=== PATIENT | male | born 1945 | race African-American/Black ===

== ENCOUNTER 2018-09-26 08:31 | Inpatient (IN) | payer OTHER ==
[~2018-09-26] VITALS: Ht 170.2 cm; Wt 83.5 kg
[~2018-09-26 08:31] MED LIST: ASPI-1718 PO; CLON0.1T42 PO; DOXA2TAB1 PO; GLUCOMETER; INSU100S55 SC; INSULIN SYRINGE PO; LANCET; SLIDE SUBQ; TEST STRIPS
--- NOTE | 2018-09-26 08:36 | NUR ---
PATIENT AMBULATED TO BED 8
[2018-09-26 08:38] VITALS: BP 136/66
[2018-09-26] MEDS ORDERED: ASPIRIN 325 MG TAB PO ONE (08:40)
[2018-09-26] MEDS ORDERED: MORPHINE SULFATE 4 MG/ML SYR IVP ONE (08:40)
[2018-09-26] MEDS ORDERED: NITROGLYCERIN 2% 1 GM PKT TP ONE (08:40)
--- NOTE | 2018-09-26 08:45 | NUR ---
PT BIB SELF FOR CP X3 HOURS. PT REPORTS CONSTANT, NON-RADIATING MID-STERNAL SHARP CP AT 9/10. PT TOOK 81MG OF ASPIRIN AT 06:30 THIS MORNING WITH NO RELIEF. S1 AND S2 SOUNDS, NO S3 OR S4, NO EDEMA, CAP REFIL DELAYED, RADIAL PULSES EQUAL 2+, PT NOT DIAPHORETIC AT THIS TIME. PT REPORTS SOB. PT HAS SHALLOW RESPIRATIONS AT 30/MIN, LUNG SOUNDS CLEAR THROUGHOUT. 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 ABD IS DISTENDED, AND FIRM, PT DENIES ABD PAIN. PT DIAGNOSED WITH CONSTIPATION LAST NIGHT AT [facility]. ER MD TO SEE PT. MEDHX:HTN, DM, RENAL FAILURE, PEROTINEAL DYALISIS
[2018-09-26 09:09] LABS: BASOPHILS % (AUTO) 0.6 % (0.0-2.0); EOSINOPHILS # (AUTO) 0.1 K/uL (0-0.4); EOSINOPHILS % (AUTO) 0.6 % (0.0-4.0); HEMATOCRIT 27.6 % (36-52); HEMOGLOBIN 9.2 g/dL (12.0-18.0); LYMPHOCYTES # (AUTO) 0.6 K/uL (2.0-11.5); LYMPHOCYTES % (AUTO) 7.2 % (20.5-51.1); MEAN CORPUSCULAR HEMOGLOBIN 31 pg (27-31); MEAN CORPUSCULAR HGB CONC 33 g/dL (33-37); MEAN CORPUSCULAR VOLUME 92.3 fL (80-94); MONOCYTES # (AUTO) 1.2 K/uL (0.8-1.0); MONOCYTES % (AUTO) 15.2 % (1.7-9.3); NEUTROPHILS % (AUTO) 76.4 % (42.2-75.2); PLATELET COUNT (AUTO) 293 K/uL (140-450); RED BLOOD CELL COUNT(AUTO) 2.99 MIL/uL (4.20-6.10); RED CELL DISTRIBUTION WIDTH 16.6 % (11.6-13.7); WHITE BLOOD COUNT (AUTO) 7.8 K/uL (4.8-10.8)
[2018-09-26] MEDS ORDERED: OMEG10005 PO (09:16)
[2018-09-26] MEDS ORDERED: FURO-570 PO (09:16)
[2018-09-26] MEDS ORDERED: PRO5 PO (09:16)
[2018-09-26] MEDS ORDERED: LEVEMIR SUBQ (09:16)
[2018-09-26] MEDS ORDERED: FOS500 PO (09:16)
[2018-09-26] MEDS ORDERED: ATOR20TA PO (09:16)
[2018-09-26] MEDS ORDERED: FAMO-90 PO (09:16)
[2018-09-26] MEDS ORDERED: DOCU-299 PO (09:16)
[2018-09-26] MEDS ORDERED: CALC-17 PO (09:16)
[2018-09-26] MEDS ORDERED: CLAR500T PO (09:16)
[2018-09-26] MEDS ORDERED: LORA10OD44 PO (09:16)
[2018-09-26] MEDS ORDERED: XALOS OP (09:16)
[2018-09-26] MEDS ORDERED: MELA5TAB6 PO (09:16)
[2018-09-26] MEDS ORDERED: SEVE800T6 PO (09:16)
[2018-09-26] MEDS ORDERED: SEN30 PO (09:16)
[2018-09-26] MEDS ORDERED: BEN50 PO (09:16)
[2018-09-26] MEDS ORDERED: MULT15LI1 PO (09:16)
[2018-09-26] MEDS ORDERED: OMEP20TC10 PO (09:16)
[2018-09-26] MEDS ORDERED: [UNRECOGNIZED DRUG - CODE] PO (09:16)
[2018-09-26] MEDS ORDERED: MULT1SGL58 PO (09:16)
[2018-09-26] MEDS ORDERED: LOSARTAN PO (09:16)
[2018-09-26] MEDS ORDERED: CINA60TA1 PO (09:16)
[2018-09-26] MEDS ORDERED: AMOX500C25 PO (09:16)
--- NOTE | 2018-09-26 09:36 | NUR ---
BEAN DUMPER AT BEDSIDE AT THIS TIME
[2018-09-26 10:07] LABS: ALBUMIN 2.9 g/dL (3.4-5.0); ANION GAP 23.6 (8-16); ASPARTATE AMINOTRANSFERASE 20 U/L (15-37); CARBON DIOXIDE 19.5 mmol/L (21-32); CHLORIDE 92 mmol/L (98-107); GLUCOSE 243 mg/dL (74-106); POTASSIUM 3.1 mmol/L (3.5-5.1); SODIUM SERUM 132 mmol/L (136-145); TOTAL BILIRUBIN 0.3 mg/dL (0.0-1.0)
[2018-09-26 10:08] LABS: CHOL/HDL RATIO 3.8 (1-4.5)
[2018-09-26 10:10] LABS: CREATININE 16.5 mg/dL (0.7-1.3); UREA NITROGEN, BLOOD 79 mg/dL (7-18)
--- NOTE | 2018-09-26 10:14 | NUR ---
FAMILY AT BEDSIDE
--- NOTE | 2018-09-26 10:42 | NUR ---
SPOKE WITH DR SCHULER, SHE STATED THAT PT WILL RECIEVE PERITONEAL DIALYSIS.
[2018-09-26 11:00] VITALS: BP 129/63
--- NOTE | 2018-09-26 11:00 | NUR ---
RECEIVED BEDSIDE REPORT FROM ED RN. PT AMBULATED FROM [facility] TO BED. AOX4. C/O CHEST TOLERABLE 4/10 CHEST PAIN. RECEIVED MORPHINE AND NITRO PATCH ON LT UA IN ED. DENIES RADIATION OF PAIN. DENIES DIZZINESS/LIGHTHEADEDNESS/DIAPHORESIS/ANXIETY. RESPIRATIONS EVEN AND UNLABORED. TACHY ON TELE MONITOR. VITALS STABLE. PERITONEAL DIALYSIS CATH NOTED. SKIN INTACT. PATIENT STATES HE IS NO LONGER PRODUCING URINE. IV SITE PATENT AND ASYMPTOMATIC, ON SL PER MD ORDERS. UPDATED BOARD AND INTRODUCED SELF. EXPLAINED PLAN OF CARE TO PATIENT AND FRIEND AT BEDSIDE. PT ALSO C/O CONSTIPATION. WILL INFORM MD. ALL SAFETY PRECAUTIONS IN PLACE, WILL CONTINUE TO MONITOR.
--- NOTE | 2018-09-26 11:00 | NUR ---
Patient will be admitted to care of [facility]. Admited to TELE VIA GURNEY WITH VSS. Will go to room 114. Belongings list completed. Report to ALEXIS DE JESUS.
[2018-09-26] MEDS ORDERED: NITROGLYCERIN 0.4 MG TAB SL PRN (11:30)
[2018-09-26] MEDS ORDERED: MORPHINE SULFATE 2 MG/ML SYR IV PRN (11:30)
[2018-09-26] MEDS ORDERED: PROMETHAZINE 25 MG/ML VIAL IVP PRN (11:30)
[2018-09-26] MEDS ORDERED: ZOLPIDEM 5 MG TAB PO PRN (11:30)
[2018-09-26] MEDS ORDERED: MORPHINE SULFATE 2 MG/ML SYR IVP PRN (11:30)
[2018-09-26] MEDS ORDERED: LORazepam 1 MG TAB PO PRN (11:30)
[2018-09-26] MEDS ORDERED: ACETAMINOPHEN 325 MG TAB PO PRN (11:30)
[2018-09-26] MEDS ORDERED: cloNIDine 0.1 MG TAB PO PRN (11:45)
[2018-09-26] MEDS ORDERED: DEXTROSE 50% 50 ML SYR IVP PRN (11:45)
[2018-09-26] MEDS ORDERED: POTASSIUM CHLORIDE 10 MEQ TABER PO SCH (12:00)
[2018-09-26] MEDS ORDERED: SENNA 8.6 MG TAB PO PRN (12:25)
[2018-09-26 12:55] LABS: AMYLASE 79 U/L (25-115); LIPASE 65 U/L (73-393)
[2018-09-26 12:57] LABS: PROTHROMBIN TIME 13.9 secs (10.8-13.4)
--- NOTE | 2018-09-26 12:57 | NUR ---
RECEIVED ORDERS FOR PERITONEAL DIALYSIS. CALLED [facility] AND LEFT MESSAGE.
[2018-09-26] MEDS ORDERED: BISACODYL 5 MG TABEC PO SCH (13:00)
[2018-09-26] MEDS ORDERED: MINERAL OIL 135 ML ENEM RC SCH (13:00)
[2018-09-26] MEDS: DOCUSATE SODIUM 100 MG GELCAP PO SCH ×2 (13:05→16:28)
[2018-09-26] MEDS: SODIUM CHLORIDE FLUSH 10 ML SYR IVF SCH ×2 (13:05→20:49)
--- NOTE | 2018-09-26 13:10 | NUR ---
PATIENT REFUSED MINERAL OIL ENEMA AT THIS TIME. ADMINISTERED COLACE AND BISACODYL. PT IS AWARE OF MIRALAX ORDER FOR LATER TODAY. WISHES TO TRY MIRALAX- IF NO BOWEL MOVEMENT, WILL CONSIDER ASKING FOR ENEMA TOMORROW PER PATIENT.
--- NOTE | 2018-09-26 13:47 | NUR ---
PER [facility], MACHINERY MECHANIC WILL BE AT BEDSIDE FOR PERITONEAL DIALYSIS AT ESTIMATED TIME 2099.
--- NOTE | 2018-09-26 13:57 | NUR ---
PATIENT STATES CHEST PAIN IS DECREASING. 09/12 TOLERABLE. WILL CONTINUE TO MONITOR.
[2018-09-26] MEDS ORDERED: MAGNESIUM CITRATE 300 ML BTL PO SCH (15:15)
--- NOTE | 2018-09-26 15:20 | NUR ---
NOTIFIED CROSSTIE INSPECTOR THAT PATIENT IS ACCEPTED BY [facility]. ACCEPTING PHYSICIAN DR. HOPSON. CROSSTIE INSPECTOR TO CALL TO [facility] FOR TRANSPORTATION.
[2018-09-26 16:00] VITALS: BP 111/63
--- NOTE | 2018-09-26 16:01 | NUR ---
PATIENT ASSESSED. BREATH SOUNDS CLEAR. ON ROOM AIR, PATIENT PULSE OX SAT 96%. PLACED ON 3L NASAL CANNULA PER MD ORDER PER CHEST PAIN PROTOCOL. ON 3L NC, PULSE OX SAT 97%. NO RESPIRATORY DISTRESS NOTED AT THIS TIME. WILL CONTINUE TO MONITOR.
--- NOTE | 2018-09-26 16:31 | NUR ---
PATIENT RESTING IN BED, AROUSABLE BY VOICE. SCHEDULED MEDICATIONS ADMINISTERED. DENIES CHEST PAIN AT THIS TIME.
[2018-09-26] MEDS: BLOOD GLUCOSE MONITORING 1 DEV DEV FS SCH ×2 (17:20→20:43)
[2018-09-26] MEDS: INSULIN LISPRO SLIDING SCALE 100 UNITS/ML VIAL SUBQ PRN ×2 (17:23→20:44)
--- NOTE | 2018-09-26 19:18 | NUR ---
ENDORSED POC TO HEEL SEAT FITTER MACHINE JULIANA PEREZ PT IN STABLE CONDITION. Addendum: 09/26/18 at 1919 by Suha Hawthorne Meng, RN DISREGARD, WRONG PATIENT
--- NOTE | 2018-09-26 19:21 | NUR ---
ENDORSED POC TO SEO ASSOCIATE RN. PT IN STABLE CONDITION.
--- NOTE | 2018-09-26 19:22 | NUR ---
RECEIVED REPORT FROM DAY SHIFT RN ALEXIS FOR CONTINUITY OF CARE. PT IS A/OX4, ON ROOM AIR. PT ABLE TO MAKE NEEDS KNOWN, AND ABLE TO FOLLOW COMMANDS. PT IS FALL RISK AND AMBULATES WITH ASSISTANCE. PT HAS CATHETER FOR PERITONEAL DIALYSIS IN PLACE, OTHERWISE SKIN IS INTACT. PT HAS AV SHUNT TO LEFT ARM AND A 20G IV TO RIGHT AC, ASYMPTOMATIC AND INTACT. DISCUSSED PLAN OF CARE WITH PT, PT VERBALIZED UNDERSTANDING. VITAL SIGNS WITHIN NORMAL LIMITS. PT STABLE, DENIES PAIN, NO SIGNS OF DISTRESS NOTED AT THIS TIME. PT POSITIONED FOR COMFORT. BED IN LOWEST POSITION, BED ALARM ON. WILL CONTINUE TO MONITOR.
[2018-09-26 20:00] VITALS: BP 126/56
[2018-09-26] MEDS: diphenhydrAMINE 50 MG CAP PO SCH (20:41)
[2018-09-26] MEDS: FAMOTIDINE 20 MG TAB PO SCH (20:49)
--- NOTE | 2018-09-26 20:49 | NUR ---
ADMINISTERED SCHEDULED MEDICATIONS AND 10 UNITS OF HUMALOG COVERAGE FOR BLOOD SUGAR OF 364. PT TOLERATED WELL. CALLED BRICK [facility]ON FOR DOXAZOSIN BECAUSE IT IS NOT AVAILABLE IS [facility] OR PT'S CASSETTE. WILL GIVE MED ONCE AVAILABLE.
[2018-09-26] MEDS: DOXAZOSIN 2 MG TAB PO SCH (21:00)
--- NOTE | 2018-09-26 21:02 | NUR ---
PT C/O CHEST PAIN, ADMINISTERED MORPHINE ORDERED, PT TOLERATED WELL. DOXAZOSIN NOT AVAILABLE PER CLOTH WASHER OPERATOR. SPOKE TO PT ABOUT IT, PT VERBALIZED UNDERSTANDING.
--- NOTE | 2018-09-26 21:40 | NUR ---
DIALYSIS NURSE HERE.
--- NOTE | 2018-09-26 23:15 | NUR ---
PT REFUSES TO USE O2, STATES HE FEELS FINE WITHOUT IT. PT SATURATING BETWEEN 95% AND 97%. WILL CONTINUE TO MONITOR.
[2018-09-27] VITALS: BP 148/63
--- NOTE | 2018-09-27 | NUR ---
VITAL SIGNS WITHIN NORMAL LIMITS. PT STABLE, DENIES PAIN, NO SIGNS OF DISTRESS NOTED AT THIS TIME. PT POSITIONED FOR COMFORT. BED IN LOWEST POSITION, BED ALARM ON. WILL CONTINUE TO MONITOR.
--- NOTE | 2018-09-27 02:21 | NUR ---
PT SATURATING AT 95% AND STILL REFUSING TO USE O2. WILL CONTINUE TO MONITOR.
[2018-09-27 04:00] VITALS: BP 132/65
[2018-09-27] MEDS: SODIUM CHLORIDE FLUSH 10 ML SYR IVF SCH ×3 (04:51→21:24)
--- NOTE | 2018-09-27 06:02 | NUR ---
PAGED DR GARNER TO INFORM HIM OF PT'S BLOOD SUGAR OF 404.
[2018-09-27] MEDS ORDERED: INSULIN REGULAR, HUMAN 100 UNIT/ML VIAL IVP SCH (06:30)
--- NOTE | 2018-09-27 06:32 | NUR ---
DR GARNER SAID TO GIVE PT 5 UNITS OF REGULAR INSULIN TO PT VIA IVP.
[2018-09-27] MEDS: BLOOD GLUCOSE MONITORING 1 DEV DEV FS SCH ×4 (07:24→21:00)
[2018-09-27] MEDS: INSULIN LISPRO SLIDING SCALE 100 UNITS/ML VIAL SUBQ PRN ×4 (07:25→21:07)
--- NOTE | 2018-09-27 07:27 | NUR ---
ENDORSED PT TO DAY SHIFT NEAL JONAS FOR CONTINUITY OF CARE. PT IN STABLE CONDITION.
--- NOTE | 2018-09-27 07:28 | NUR ---
RECEIVED REPORT FROM PSYCHIATRIC ORDERLY NURSE. PATIENT LYING DOWN IN BED COMFORTABLY. CURRENTLY RECEIVING PERITONEAL DIALYSIS. DIALYSIS NURSE TO COME AROUND 0800 AM TO COMPLETE PERITONEAL DIALYSIS. DENIES ANY PAIN AT THIS TIME. AAOX4, CALM, COOPERATIVE, SKIN COLOR APPROPRIATE TO ETHNICITY, WARM TO TOUCH. SKIN INTACT. IV SITE INTACT, PATENT, ON SALINE LOCK. ABDOMEN SOFT. REVIEWED PLAN OF CARE WITH PATIENT. PATIENT VERBALIZED UNDERSTANDING. SAFETY MEASURES IN PLACE, CALL LIGHT WITHIN REACH. WILL CONTINUE TO MONITOR.
[2018-09-27 07:47] LABS: HEMATOCRIT 27.3 % (36-52); MEAN CORPUSCULAR HEMOGLOBIN 30 pg (27-31); MEAN CORPUSCULAR HGB CONC 33 g/dL (33-37); MEAN CORPUSCULAR VOLUME 92.2 fL (80-94); PLATELET COUNT (AUTO) 286 K/uL (140-450); RED BLOOD CELL COUNT(AUTO) 2.96 MIL/uL (4.20-6.10); RED CELL DISTRIBUTION WIDTH 16.7 % (11.6-13.7); WHITE BLOOD COUNT (AUTO) 5.1 K/uL (4.8-10.8)
[2018-09-27 08:00] VITALS: BP 150/84
--- NOTE | 2018-09-27 08:10 | NUR ---
AWAKE AND ALERT VERBALLY RESPONSIVE C/O POSSIBLE NASAL DRYNES ADDED HUMIDIFIER
[2018-09-27 08:16] LABS: EOSINOPHILS % (MANUAL) 2 % (0-4); LYMPHOCYTES % (MANUAL) 14 % (20-46); MONOCYTES % (MANUAL) 17 % (5-12)
--- NOTE | 2018-09-27 08:28 | NUR ---
PATIENT HAS BEEN SCREENED AND CATEGORIZED MODERATE NUTRITION RISK. PATIENT WILL BE SEEN WITHIN 3-5 DAYS OF ADMISSION. 09/28/18EMILY [address]ALL [address]
[2018-09-27] MEDS: FUROSEMIDE 40 MG TAB PO SCH (09:00)
[2018-09-27] MEDS: ASPIRIN 81 MG TAB.CHEW PO SCH (09:29)
[2018-09-27] MEDS: CALCIUM CARB/VIT-D 500 MG/200 IU 1 TAB PO SCH (09:29)
[2018-09-27] MEDS: DOCUSATE SODIUM 100 MG GELCAP PO SCH ×3 (09:30→18:30)
[2018-09-27] MEDS ORDERED: MINERAL OIL 135 ML ENEM RC SCH (09:30)
[2018-09-27] MEDS: ATORVASTATIN 20 MG TAB PO SCH (09:30)
[2018-09-27] MEDS: POLYETHYLENE GLYCOL 17 GM/PKT PO SCH (09:31)
[2018-09-27] MEDS: CINACALCET 30 MG TAB PO SCH (09:31)
[2018-09-27] MEDS: INSULIN LANTUS 100 UNITS/ML 10 ML VIAL SUBQ SCH (09:39)
[2018-09-27 09:40] LABS: CHLORIDE 89 mmol/L (98-107); POTASSIUM 4.2 mmol/L (3.5-5.1); SODIUM SERUM 129 mmol/L (136-145)
[2018-09-27 09:41] LABS: ANION GAP 25.3 (8-16); CARBON DIOXIDE 18.9 mmol/L (21-32)
[2018-09-27 09:42] LABS: GLUCOSE 424 mg/dL (74-106)
[2018-09-27 09:43] LABS: UREA NITROGEN, BLOOD 94 mg/dL (7-18)
--- NOTE | 2018-09-27 09:50 | NUR ---
PATIENT SITTING IN BED. NO DISTRESS NOTED. DENIES ANY PAIN. SCHEDULED MEDICATIONS DUE GIVEN. WILL CONTINUE TO MONITOR.
[2018-09-27 11:15] LABS: CHOL/HDL RATIO 3.1 (1-4.5)
[2018-09-27 11:27] LABS: MAGNESIUM 2.5 mg/dL (1.8-2.4)
[2018-09-27 12:00] VITALS: BP 117/66
[2018-09-27] MEDS ORDERED: INSULIN LANTUS 100 UNITS/ML 10 ML VIAL SUBQ SCH (13:00)
--- NOTE | 2018-09-27 13:06 | NUR ---
GLUCOSE 422. PAGED DR. MERINO, PER DR. MERINO, ADMINISTER 10 UNITS LANTUS X 1 DOSE NOW, AND 12 UNITS HUMALOG. WILL ADMINISTER PER MD ORDERS.
--- NOTE | 2018-09-27 13:36 | NUR ---
PATIENT SITTING DOWN ON BEDSIDE CHAIR. FAMILY MEMBER AT BEDSIDE. NO DISTRESS NOTED. DENIES ANY PAIN. SCHEDULED MEDICATIONS DUE GIVEN. WILL CONTINUE TO MONITOR.
--- NOTE | 2018-09-27 15:54 | NUR ---
RAIDOLOGIST FOR MS VQ SCAN ON UNIT TO TAKE PATIENT FOR SCAN. WILL CONTINUE TO MONITOR.
[2018-09-27 16:00] VITALS: BP 118/68
--- NOTE | 2018-09-27 16:00 | NUR ---
FERRIC GLUCONATE VIA IV NOT GIVEN AT THIS TIME D/T VQ SCAN PULMONARY TECH ON UNIT TO TAKE PATIENT FOR SCAN. WILL ADMINISTER AFTER VQ SCAN.
--- NOTE | 2018-09-27 17:10 | NUR ---
KUB RESULTS RETURNED, DR. DODSON PAGED. DR SCHULER RETURNED CALL. NOTIFIED OF RESULTS. NO FURTHER ORDERS AT THIS TIME.
--- NOTE | 2018-09-27 17:45 | NUR ---
VQ SCAN COMPLETED. HEMODIALYSIS NURSE AT BEDSIDE TO START HD. FERRIC GLUCONATE IV NOT GIVEN AT THIS TIME AND WILL ENDORSE TO ENGINEER AUTOMATED EQUIPMENT RN TO ADMINISTER AFTER HD COMPLETES.
--- NOTE | 2018-09-27 18:00 | NUR ---
PATIENT BACK FROM NUCLEAR MEDICINE. HEMODIALYSIS STARTED AT THIS TIME. WILL CONTINUE TO MONITOR.
--- NOTE | 2018-09-27 19:15 | NUR ---
RECEIVED REPORT FROM DAY SHIFT NURSE. PT LYING IN BED, AAOX4. PT IS RECEIVING HEMODIALYSIS AT THIS TIME. PT HAS RIGHT AV FISTULA. PT'S AND DIALYSIS NURSE AT BEDSIDE. ON O2 AT 3L/MIN VIA NC. NO C/O PAIN OR SOB. SAFETY PRECAUTION IN PLACE. CALL LIGHT WITHIN REACH.
--- NOTE | 2018-09-27 19:35 | NUR ---
GAVE REPORT TO OPS ANALYST NURSE FOR CONTINUITY OF CARE. PATIENT IN STABLE CONDITION.
[2018-09-27 20:00] VITALS: BP 132/62
--- NOTE | 2018-09-27 20:42 | NUR ---
CALLED FOR RESULT OF NEW EKG.HE ASKED ME TO ORSER SED RATE FOR AM AND FAX EKG TO HIM.IT DONE.
--- NOTE | 2018-09-27 21:00 | NUR ---
DIALYSIS DONE. OUTPUT 2L. VS WITHIN NORMAL LIMITS. NO C/O PAIN OR SOB.
[2018-09-27] MEDS: SODIUM FERRIC GLUCONATE 125 MG in NACL 0.9% 100 ML IV SCH (21:23)
[2018-09-27] MEDS: diphenhydrAMINE 50 MG CAP PO SCH (21:23)
[2018-09-27] MEDS: DOXAZOSIN 2 MG TAB PO SCH (21:24)
--- NOTE | 2018-09-27 21:25 | NUR ---
PT EATING AT THIS TIME. DUE MEDS GIVEN INCLUDING FERRLECIT 125 MG IVPB. FERRLECIT WAS NOT GIVEN EARLIER BEC PT WAS HAVING DIALYSIS. CHARGE NURSE AWARE.
--- NOTE | 2018-09-27 22:30 | NUR ---
PT GOT UP FROM BED, REMOVED HIS IV AND TRIED TO GO TO HALLWAY. ASSISTED PT'S BACK TO BED. SAFETY PRECAUTION IN PLACE. BED ALARM ON.
--- NOTE | 2018-09-27 22:45 | NUR ---
INSERTED IV LINE TO LEFT HAND #22G. GOOD FLUSH AND BLOOD RETURN. PT TOLERATED PROCEDURE WELL.
--- NOTE | 2018-09-27 23:35 | NUR ---
PT TRIED TO GET UP FROM BED X5. ASSISTED PT BACK TO BED. PER PT, HE WANTS TO SLEEP. EXPLAINED TO PT THAT HE GOT HIS BENADRYL THAT'S WHY FEELS DROWSY. PT VERBALIZED UNDERSTANDING. SAFETY MEASURES IN PLACE.
[2018-09-28] VITALS: BP 140/61
--- NOTE | 2018-09-28 01:30 | NUR ---
PT SLEEPING. RESP EVEN AND UNLABORED. NO S/S OF PAIN OR DISCOMFORT. SAFETY PRECAUTION IN PLACE.
[2018-09-28 04:00] VITALS: BP 137/64
--- NOTE | 2018-09-28 04:00 | NUR ---
PT LYING IN BED, AWAKE. CHECKED VS, WNL. NO C/O PAIN OR SOB. NEEDS MET AT THIS TIME. SAFETY PRECAUTION IN PLACE.
[2018-09-28] MEDS: SODIUM CHLORIDE FLUSH 10 ML SYR IVF SCH ×3 (05:04→21:04)
[2018-09-28] MEDS: INSULIN LISPRO SLIDING SCALE 100 UNITS/ML VIAL SUBQ PRN ×3 (06:11→21:06)
[2018-09-28] MEDS: BLOOD GLUCOSE MONITORING 1 DEV DEV FS SCH ×4 (06:16→21:04)
--- NOTE | 2018-09-28 06:30 | NUR ---
BLOOD SUGAR CHECKED 193. 2 UNITS OF HUMALOG GIVEN SUBQ.
[2018-09-28 07:16] LABS: HEMATOCRIT 27.5 % (36-52); MEAN CORPUSCULAR HEMOGLOBIN 30 pg (27-31); MEAN CORPUSCULAR HGB CONC 33 g/dL (33-37); MEAN CORPUSCULAR VOLUME 91.7 fL (80-94); PLATELET COUNT (AUTO) 279 K/uL (140-450); RED CELL DISTRIBUTION WIDTH 16.7 % (11.6-13.7); WHITE BLOOD COUNT (AUTO) 2.6 K/uL (4.8-10.8)
[2018-09-28 07:17] LABS: ANION GAP 14.8 (8-16); CARBON DIOXIDE 26.7 mmol/L (21-32); CHLORIDE 95 mmol/L (98-107); GLUCOSE 187 mg/dL (74-106); POTASSIUM 3.5 mmol/L (3.5-5.1); SODIUM SERUM 133 mmol/L (136-145); UREA NITROGEN, BLOOD 52 mg/dL (7-18)
[2018-09-28 07:20] LABS: MAGNESIUM 2.1 mg/dL (1.8-2.4); PHOSPHORUS 2.9 mg/dL (2.5-4.9)
--- NOTE | 2018-09-28 07:20 | NUR ---
ENDORSED PT TO DAY SHIFT NURSE. PT IN STABLE CONDITION.
--- NOTE | 2018-09-28 07:21 | NUR ---
RECEIVED REPORT FROM AUTOMOTIVE PARTS COUNTERPERSON NURSE FOR CONTINUITY OF CARE. PT IN STABLE CONDITION. RESPIRATIONS EVEN AND UNLABORED. IV INTACT AND PATENT. SAFETY MEASURES IN PLACE. CALL LIGHT AT BEDSIDE. BED IN LOW POSITION. BED ALARM ON. WILL CONTINUE TO MONITOR.
[2018-09-28 07:39] LABS: CREATININE 11.1 mg/dL (0.7-1.3)
[2018-09-28 08:00] VITALS: BP 132/57
--- NOTE | 2018-09-28 08:10 | NUR ---
ASSISTED PT TO RESTROOM AT THIS TIME. PT TOLERATED WELL. CALL LIGHT AT BEDSIDE. BED IN LOW POSITION. BED ALARM ON. WILL CONTINUE TO MONITOR.
[2018-09-28 08:39] LABS: EOSINOPHILS % (MANUAL) 8 % (0-4); LYMPHOCYTES % (MANUAL) 46 % (20-46); MONOCYTES % (MANUAL) 20 % (5-12)
[2018-09-28] MEDS ORDERED: MAGNESIUM CITRATE 300 ML BTL PO SCH (09:00)
[2018-09-28] MEDS: FUROSEMIDE 40 MG TAB PO SCH ×2 (09:00→10:19)
[2018-09-28] MEDS: INSULIN LANTUS 100 UNITS/ML 10 ML VIAL SUBQ SCH (10:12)
--- NOTE | 2018-09-28 10:14 | NUR ---
PT LYING IN BED WATCHING TV IN STABLE CONDITION. CALL LIGHT AT BEDSIDE. BED IN LOW POSITION. BED ALARM ON. WILL CONTINUE TO MONITOR.
[2018-09-28] MEDS: ASPIRIN 81 MG TAB.CHEW PO SCH (10:17)
[2018-09-28] MEDS: CALCIUM CARB/VIT-D 500 MG/200 IU 1 TAB PO SCH (10:17)
[2018-09-28] MEDS: DOCUSATE SODIUM 100 MG GELCAP PO SCH ×3 (10:17→19:07)
[2018-09-28] MEDS: CINACALCET 30 MG TAB PO SCH (10:18)
[2018-09-28] MEDS: ATORVASTATIN 20 MG TAB PO SCH (10:19)
[2018-09-28] MEDS: POLYETHYLENE GLYCOL 17 GM/PKT PO SCH (10:19)
[2018-09-28 12:00] VITALS: BP 130/60
--- NOTE | 2018-09-28 12:30 | NUR ---
PT LYING IN BED SLEEPING AT THIS TIME. WILL CONTINUE TO MONITOR. BED IN LOW POSITION. BED ALARM ON. WILL CONTINUE TO MONITOR.
--- NOTE | 2018-09-28 12:56 | NUR ---
CM NOTE RECEIVED ORDER FOR OUTPATIENT HEMODIALYSIS AT [facility]. FAXED ORDER TO IE. [facility] CM KAREN AWARE. FAXED ORDER AND CLINICAL PACKET INCLUDING CHEST X-RAY AND DIALYSIS FLOWSHEET TO [facility]. PER LARA [facility] COORDINATOR PH# [phone], THEY NEED THE HEPATITIS PANEL FOR THIS PATIENT. CHARGE NURSE MARIN COLÓN.
[2018-09-28] MEDS: LACTULOSE 20 GM/30 ML UDC PO SCH ×3 (12:57→21:10)
--- NOTE | 2018-09-28 13:30 | NUR ---
CM NOTE I SPOKE WITH MIKE OF [facility] PH# [phone] TO SET UP PATIENT'S OUTPATIENT FOLLOW UP APPOINTMENT. PER MIKE, THE EARLIEST AVAILABLE SCHEDULE IS ON OCTOBER 04, 2018, 10:45 AM AT THE CLINIC AT [address] [place] [address]. I GAVE THE PATIENT HIS OUTPATIENT FOLLOW UP SCHEDULE.
--- NOTE | 2018-09-28 14:19 | NUR ---
ELECTRICAL SYSTEMS DESIGNER AT BEDSIDE. PT IN STABLE CONDITION. CALL LIGHT AT BEDSIDE. BED IN LOW POSITION. BED ALARM ON. WILL CONTINUE TO MONITOR.
[2018-09-28] MEDS ORDERED: INDOMETHACIN 25 MG CAP PO SCH (15:00)
[2018-09-28 16:00] VITALS: BP 114/54
[2018-09-28] MEDS: SODIUM FERRIC GLUCONATE 125 MG in NACL 0.9% 100 ML IV SCH (16:53)
--- NOTE | 2018-09-28 18:00 | NUR ---
PT HAD A BOWEL MOVEMENT MODERATE IN SIZE. PT TOLERATED WELL. WILL CONTINUE TO MONITOR.
--- NOTE | 2018-09-28 19:34 | NUR ---
GAVE REPORT TO OCCUPATIONAL NURSE NURSE AT BEDSIDE FOR CONTINUITY OF CARE. PT IN STABLE CONDITION.
--- NOTE | 2018-09-28 19:35 | NUR ---
RECEIVED PT FROM SISSY DE JESUS PT IS AAOX4 EATING HIS DINNER ON TELEMETRY ST, HL ON RT HAND PATENT, DENIES ANY PAIN AT THIS TIME INITIAL ASSESSMENT DONE
[2018-09-28 20:00] VITALS: BP 98/44
[2018-09-28] MEDS: DOXAZOSIN 2 MG TAB PO SCH (21:00)
[2018-09-28] MEDS: INDOMETHACIN 25 MG CAP PO SCH (21:09)
[2018-09-28] MEDS: diphenhydrAMINE 50 MG CAP PO SCH (21:09)
[2018-09-28] MEDS: FAMOTIDINE 20 MG TAB PO SCH (21:16)
--- NOTE | 2018-09-28 21:30 | NUR ---
BLOOD SUGAR TEST 226 WAS COVERAGE WITH 4 UNITS HUMALOG SUBQ FOLLOWING PROTOCOL
--- NOTE | 2018-09-28 22:08 | NUR ---
PT SLEEPING WELL REPOSITIONED Q2H NOT DISTRESS NOTED
[2018-09-29] VITALS: BP 123/60
--- NOTE | 2018-09-29 | NUR ---
PT SLEEPING WELL DENIES ANY PAIN OR DISCOMFORT ON TELMETRY SR REPOSITIONED Q2H
--- NOTE | 2018-09-29 03:00 | NUR ---
SPONGE BATH GIVEN LINEN CHANGED ON TELE SR REPOSITIONED Q2H COOPERATIVE NOT DISTRESS NOTED
[2018-09-29 04:00] VITALS: BP 106/56
[2018-09-29] MEDS: SODIUM CHLORIDE FLUSH 10 ML SYR IVF SCH ×2 (05:49→13:36)
[2018-09-29] MEDS: BLOOD GLUCOSE MONITORING 1 DEV DEV FS SCH ×3 (05:58→16:50)
[2018-09-29] MEDS: INSULIN LISPRO SLIDING SCALE 100 UNITS/ML VIAL SUBQ PRN ×2 (05:59→13:39)
--- NOTE | 2018-09-29 06:35 | NUR ---
BLOOD SUGAR TEST 199 COVERAGE WITH 2 UNITS SUBQ ON RT ARM PT WILL BE ENDORSED TO DAY SHIFT NURSE FOR CONTINUITY OF CARE, PT REMAIN STABLE
[2018-09-29 07:16] LABS: BASOPHILS % (AUTO) 0.5 % (0.0-2.0); EOSINOPHILS # (AUTO) 0.1 K/uL (0-0.4); EOSINOPHILS % (AUTO) 3.4 % (0.0-4.0); HEMATOCRIT 27.2 % (36-52); HEMOGLOBIN 8.8 g/dL (12.0-18.0); LYMPHOCYTES # (AUTO) 0.6 K/uL (2.0-11.5); LYMPHOCYTES % (AUTO) 21.1 % (20.5-51.1); MEAN CORPUSCULAR HEMOGLOBIN 30 pg (27-31); MEAN CORPUSCULAR HGB CONC 32 g/dL (33-37); MEAN CORPUSCULAR VOLUME 94.1 fL (80-94); MONOCYTES # (AUTO) 1.2 K/uL (0.8-1.0); MONOCYTES % (AUTO) 39.4 % (1.7-9.3); NEUTROPHILS # (AUTO) 1.1 K/uL (1.8-7.7); NEUTROPHILS % (AUTO) 35.6 % (42.2-75.2); PLATELET COUNT (AUTO) 277 K/uL (140-450); RED BLOOD CELL COUNT(AUTO) 2.89 MIL/uL (4.20-6.10); RED CELL DISTRIBUTION WIDTH 17.1 % (11.6-13.7); WHITE BLOOD COUNT (AUTO) 3.1 K/uL (4.8-10.8)
[2018-09-29 07:17] LABS: ANION GAP 15.4 (8-16); CARBON DIOXIDE 26.4 mmol/L (21-32); CHLORIDE 100 mmol/L (98-107); GLUCOSE 201 mg/dL (74-106); POTASSIUM 3.8 mmol/L (3.5-5.1); SODIUM SERUM 138 mmol/L (136-145); UREA NITROGEN, BLOOD 30 mg/dL (7-18)
[2018-09-29 07:23] LABS: MAGNESIUM 2.4 mg/dL (1.8-2.4); PHOSPHORUS 2.6 mg/dL (2.5-4.9)
[2018-09-29 07:25] LABS: CREATININE 7.4 mg/dL (0.7-1.3)
--- NOTE | 2018-09-29 07:25 | NUR ---
RECEIVED REPORT FROM CLEAT THROWER NURSE CRISSY AT BEDSIDE. PT IN STABLE CONDITION. RESPIRATIONS EVEN AND UNLABORED. IV INTACT AND PATENT. SAFETY MEASURES IN PLACE. BED IN LOW POSITION. CALL LIGHT AT BEDSIDE. WILL CONTINUE TO MONITOR.
[2018-09-29 08:00] VITALS: BP 110/60
[2018-09-29] MEDS: FUROSEMIDE 40 MG TAB PO SCH (09:00)
[2018-09-29] MEDS: INSULIN LANTUS 100 UNITS/ML 10 ML VIAL SUBQ SCH (09:10)
[2018-09-29] MEDS: ASPIRIN 81 MG TAB.CHEW PO SCH (09:14)
[2018-09-29] MEDS: CALCIUM CARB/VIT-D 500 MG/200 IU 1 TAB PO SCH (09:14)
[2018-09-29] MEDS: ATORVASTATIN 20 MG TAB PO SCH (09:14)
[2018-09-29] MEDS: POLYETHYLENE GLYCOL 17 GM/PKT PO SCH (09:14)
[2018-09-29] MEDS: DOCUSATE SODIUM 100 MG GELCAP PO SCH ×3 (09:14→16:50)
[2018-09-29] MEDS: INDOMETHACIN 25 MG CAP PO SCH (09:15)
[2018-09-29] MEDS: CINACALCET 30 MG TAB PO SCH (09:15)
[2018-09-29 09:27] LABS: HEPATITIS A ANTIBODY IGM Negative (Negative); HEPATITIS B CORE AB TOTAL Negative (Negative); HEPATITIS B SURFACE ANTIBODY Non Reactive (.); HEPATITIS B SURFACE ANTIGEN Negative (Negative)
--- NOTE | 2018-09-29 11:22 | NUR ---
CM NOTE FAXED CURRENT HEPATITIS PANEL RESULT TO [facility] AND LEFT VM TO [facility] COORDINATOR LARA [phone] TO FOLLOW UP ON OUTPATIENT HEMODIALYSIS CHAIR TIME IN [facility]. NO CALL BACK AT THIS TIME. SISSY DE JESUS AND CHARGE NURSE GLO COLÓN.
--- NOTE | 2018-09-29 11:58 | NUR ---
CM NOTE I INFORMED LARA OF [facility] THAT WE HAVE A DISCHARGE ORDER FOR PATIENT TODAY. PER KATIANA, SHE'S STILL WORKING ON GETTING THE OUTPATIENT DIALYSIS CHAIR TIME AT [facility].
[2018-09-29 12:00] VITALS: BP 140/60
--- NOTE | 2018-09-29 12:59 | NUR ---
BLOOD SUGAR 423, TORD STEPHEN GENAO 8 UNITS LANTUS, 10 UNITS HUMALOG.
[2018-09-29] MEDS ORDERED: INSULIN LANTUS 100 UNITS/ML 10 ML VIAL SUBQ SCH (14:00)
--- NOTE | 2018-09-29 15:02 | NUR ---
CM NOTE PER LARA [facility]# [phone], THE PATIENT'S OUTPATIENT HEMODIALYSIS SCHEDULE IS: SCHEDULE: MONDAYS, WEDNESDAYS, FRIDAYS STARTING ON OCTOBER 01, 2018 (THURSDAY) TIME: 3:30 AM. ARRIVAL TIME: 3:15 AM FAC[facility]: [facility] ADDRESS: [address] [place] [address] PHONE #: [phone] I GAVE THE PATIENT HIS OUTPATIENT HEMODIALYSIS SCHEDULE AND PER PATIENT HE HAS FAMILY TO BRING HIM TO HIS DIALYSIS APPOINTMENTS. SISSY DE JESUS AND CHARGE NURSE GLO COLÓN.
[2018-09-29 16:00] VITALS: BP 126/79
[2018-09-29] MEDS: SODIUM FERRIC GLUCONATE 125 MG in NACL 0.9% 100 ML IV SCH (16:36)
--- NOTE | 2018-09-29 16:54 | NUR ---
GAVE ORDERED DUE MEDICATIONS. PT TOLERATED WELL. FRIEND AT BEDSIDE. PT WATCHING TV IN STABLE CONDITION. WILL CONTINUE TO MONITOR.
--- NOTE | 2018-09-29 18:45 | NUR ---
GAVE DISCHARGE INSTRUCTIONS, PT VERBALIZED UNDERSTANDING OF INSTRUCTIONS. IV REMOVED LUMEN INTACT. ID REMOVED. PT WHEELED TO LOBBY WHERE FAMILY WAS WAITING WITH VEHICLE. PT IN STABLE CONDITION.
== END 2018-09-29 18:46 | disposition home or self-care (01) | DRG 388 ==
LOC: MED 08:31 → MTU 10:47
PROVIDERS: ADMIT Internal Medicine Pulmonary Disease; ATTEND Internal Medicine Pulmonary Disease
PROC: 3E1M39Z Irrigation of Peritoneal Cavity using Dialysate, Percutaneous Approach (ICD-10-PCS; 2018-09-26)
PROC: 5A1D70Z Performance of Urinary Filtration, Intermittent, Less than 6 Hours Per Day (ICD-10-PCS; principal; 2018-09-27)
PROC: 5A1D70Z Performance of Urinary Filtration, Intermittent, Less than 6 Hours Per Day (ICD-10-PCS; 2018-09-28)
DX: K56.609 Unspecified intestinal obstruction, unspecified as to partial versus complete obstruction (principal); N18.6 End stage renal disease; I13.11 Hypertensive heart and chronic kidney disease without heart failure, with stage 5 chronic kidney disease, or end stage renal disease; E87.1 Hypo-osmolality and hyponatremia; I30.9 Acute pericarditis, unspecified; R07.89 Other chest pain; K56.7 Ileus, unspecified; K59.00 Constipation, unspecified; E11.22 Type 2 diabetes mellitus with diabetic chronic kidney disease; E78.5 Hyperlipidemia, unspecified; E87.6 Hypokalemia; D64.9 Anemia, unspecified; E66.9 Obesity, unspecified; Z99.2 Dependence on renal dialysis; Z79.4 Long term (current) use of insulin; Z91.010 Allergy to peanuts; Z79.82 Long term (current) use of aspirin; Z79.899 Other long term (current) drug therapy; Z90.49 Acquired absence of other specified parts of digestive tract; Z68.28 Body mass index [BMI] 28.0-28.9, adult; R79.89 Other specified abnormal findings of blood chemistry
CPT/HCPCS: 36415; 71045; 74018; 78582; 80048; 80053; 82150; 82550; 82553; 82728; 82948; 83540; 83690; 83735; 83880; 84100; 84484; 85025; 85379; 85610; 85651; 85730; 86704; 86706; 86708; 86709; 86803; 87081; 87340; 90935; 93005; 96374; 99291; J1644; J1815; J2270; J2916; J7030; Q0092; Q0163

== ENCOUNTER 2024-03-17 11:38 | Emergency (ER) | payer OTHER ==
[~2024-03-17] VITALS: Ht 167.6 cm; Wt 80.3 kg
[~2024-03-17 11:38] MED LIST changes: +AMOX500C25 PO; -ASPI-1718 PO; +ASPI-1822 PO; +ATOR20TA PO; +BEN50 PO; +CALC-17 PO; +CINA60TA1 PO; +CLAR500T14 PO; +CLON0.1T16 PO; -CLON0.1T42 PO; +DOCU-299 PO; +DOXA-37 PO; -DOXA2TAB1 PO; +FAMO-90 PO; +FOS500 PO; +FURO-570 PO; +LEVEMIR SUBQ; +LORA10OD44 PO; +LOSARTAN PO; +MELA5TAB68 PO; +MULT15LI1 PO; +MULT1SGL58 PO; +OMEG10005 PO; +OMEP-303 PO; +PRO5 PO; +SEN30 PO; +SEVE800T6 PO; +XALOS OP; +[UNRECOGNIZED DRUG - CODE] PO
[2024-03-17 11:58] VITALS: BP 147/60; PULSE 92; RESP 17; TEMP 97.9; O2SAT 98
== END 2024-03-17 12:45 | disposition home or self-care (01) ==
LOC: MED 11:38
DX: I12.0 Hypertensive chronic kidney disease with stage 5 chronic kidney disease or end stage renal disease (principal); E11.22 Type 2 diabetes mellitus with diabetic chronic kidney disease; N18.6 End stage renal disease; Z99.2 Dependence on renal dialysis; Z79.4 Long term (current) use of insulin; Z79.1 Long term (current) use of non-steroidal anti-inflammatories (NSAID); Z79.82 Long term (current) use of aspirin; Z79.899 Other long term (current) drug therapy; Z91.010 Allergy to peanuts
CPT/HCPCS: 93005; 99283